=== PATIENT | male | born 1990 | race African-American/Black ===

== ENCOUNTER 2019-03-27 10:57 | Emergency (ER) | payer OTHER ==
[2019-03-27 11:06] VITALS: BP 129/74; PULSE 57; TEMP 98.4; BMI 29.5
--- NOTE | 2019-03-27 11:34 | PDOC ---
History of Present Illness - General Chief Complaint: Injury Stated Complaint: INJURY Time Seen by Provider: 03/27/19 11:22 History Source: Patient - History of Present Illness Initial Comments: 03/27/19 13:50 Chief complaint: Left groin pain Patient is a healthy 28-year-old male complaining of 1 day of left groin pain, started earlier today. Patient denies any injury. Patient does not have any fever, nausea, vomiting, testicular pain. Patient thought that maybe he was developing a boil or had an ingrown hair but did not find anything. Patient has never had this before. GENERAL/CONSTITUTIONAL: No fever, weakness. dizziness HEAD, EYES, EARS, NOSE AND THROAT: No change in vision. No ear pain or discharge. No sore throat. CARDIOVASCULAR: No chest pain RESPIRATORY: No shortness of breath or cough GASTROINTESTINAL: No pain, nausea, vomiting, diarrhea or constipation, + left groin GENITOURINARY: No dysuria MUSCULOSKELETAL: No neck or back pain SKIN: No rash NEUROLOGIC: No headache, vertigo, loss of consciousness, or loss of sensation. GENERAL: The patient is awake, alert, and fully oriented, in no acute distress. HEAD: Normal with no signs of trauma. EYES: Pupils equal, round and reactive to light, sclera anicteric, conjunctiva clear. ENT: pharynx: no erythema, no exudate, uvula midline NECK: supple CHEST: clear, nontender, rr ABD: soft, nontender, testicles, no swelling, no erythema, no tenderness, penis is normal exam, no discharge swelling or erythema or lesions BACK: no tenderness or signs of injury EXTREMITIES: Normal range of motion, no edema. NEUROLOGICAL: Normal speech, normal gait. SKIN: Warm, Dry Past History - Past Medical History Allergies/Adverse Reactions: Allergies Allergy/AdvReac Type Severity Reaction Status Date / Time shellfish derived Allergy Verified 03/27/19 11:40 Home Medications: Ambulatory Orders NK [No Known Home Medication] 03/27/19 COPD: No - Immunization History Immunization Up to Date: Yes - Suicide/Smoking/Psychosocial Hx Smoking History: Never smoked Information on smoking cessation initiated: No Hx Alcohol Use: No Drug/Substance Use Hx: No *Physical Exam - Vital Signs Last Vital Signs Temp Pulse Resp BP Pulse Ox 98.4 F 57 L 16 129/74 58 L 03/27/19 11:03 03/27/19 11:03 03/27/19 11:03 03/27/19 11:03 03/27/19 11:03 Medical Decision Making - Medical Decision Making 03/27/19 13:52 Patient with left groin pain today, no signs of abscess, ingrown hair, obvious hernia, normal testicular exam. Will check urine, will check ultrasound of the testicles, and soft tissue ultrasound of that area to evaluate for hernia or other causes 03/27/19 14:47 small lymph node, no hernia, testicular microcalcification, small right hydrocele, stds sent but pt denies sex x 2 years Discussed issues, findings, results, applicable medications and treatments and follow-up. All these were understood and all questions were answered 03/27/19 15:42 *DC/Admit/Observation/Transfer Diagnosis at time of Disposition: Left groin pain - Discharge Dispostion Disposition: HOME Condition at time of disposition: Stable - Referrals Referrals: Murphy Reyes MD [Staff Physician] - - Patient Instructions Additional Instructions: It is not clear what is causing her groin pain, although there is a lymph node. This could be a sign of infection but it can also be very nonspecific from irritation. In addition there is a right testicular microcalcification. This ended of itself is not an issue now but needs to be followed to make sure it doesn't develop into cancer There is no specific medication or treatment you need today, it is very important for you to follow-up with the urologist next week for reevaluation of your symptoms. You will be called if your urine tests show anything that you need medication for including urine infection which is unlikely an STDs You were given copies of your reports which you can bring to the urologist. Return to the ER if fever, vomiting, feeling sick, worsening pain - Post Discharge Activity
[2019-03-27 13:03] LABS: PH,URINE 6.5 (5.0-8.0); URINE APPEARANCE CLEAR; URINE BILIRUBIN NEGATIVE (NEGATIVE); URINE COLOR YELLOW; URINE GLUCOSE (UA) NEGATIVE (NEGATIVE); URINE KETONE NEGATIVE (NEGATIVE); URINE LEUK ESTERASE NEGATIVE (NEGATIVE); URINE NITRITE NEGATIVE (NEGATIVE); URINE PROTEIN NEGATIVE (NEGATIVE); URINE UROBILINOGEN 0.2 mg/dL (0.2-1.0)
== END 2019-03-27 15:00 | disposition home or self-care (01) ==
LOC: JERFT 10:57
DX: R10.32 Left lower quadrant pain (principal)
CPT/HCPCS: 36415; 76705-TC; 76870-TC; 81003; 87086; 87491; 87591; 99282-25

== ENCOUNTER 2020-09-18 09:45 | Emergency (ER) | payer OTHER ==
[2020-09-18 10:03] VITALS: BP 123/69; PULSE 83; TEMP 98.2; BMI 30.3
[2020-09-18] MEDS ORDERED: IBUPROFEN 600 MG TABLET (FP) PO ONE ×2 (10:19→10:22)
== END 2020-09-18 10:45 | disposition home or self-care (01) ==
LOC: JER 09:45 → JERFT 09:45
DX: T22.012A Burn of unspecified degree of left forearm, initial encounter (principal)
CPT/HCPCS: 99283-25

== ENCOUNTER 2021-08-11 23:31 | Emergency (ER) | payer BC, OTHER ==
[2021-08-11 23:50] VITALS: BP 152/79; PULSE 73; TEMP 99.2; BMI 29.9
== END 2021-08-12 00:38 | disposition home or self-care (01) ==
LOC: FER 23:31
PROC: 0HQGXZZ Repair Left Hand Skin, External Approach (ICD-10-PCS; principal; 2021-08-11)
DX: S61.012A Laceration without foreign body of left thumb without damage to nail, initial encounter (principal); W26.8XXA Contact with other sharp object(s), not elsewhere classified, initial encounter
CPT/HCPCS: 99282-25

== ENCOUNTER 2021-08-18 12:00 | Emergency (ER) | payer BC ==
[2021-08-18 12:09] VITALS: BP 140/83; PULSE 58; TEMP 98.6; BMI 29.5
== END 2021-08-18 12:15 | disposition home or self-care (01) ==
LOC: FER 12:00
DX: Z48.02 Encounter for removal of sutures (principal)
CPT/HCPCS: 99281-25

== ENCOUNTER 2023-11-26 07:53 | Emergency (ER) | payer BC, OTHER ==
[2023-11-26 08:05] VITALS: BP 125/82; PULSE 94; RESP 17; BMI 31.0
== END 2023-11-26 10:26 | disposition home or self-care (01) ==
LOC: JER 07:53
DX: M79.641 Pain in right hand (principal); W23.0XXA Caught, crushed, jammed, or pinched between moving objects, initial encounter
CPT/HCPCS: 73130-TC-RT-FY; 99283-25